=== PATIENT | female | born 1965 | race Caucasian/White ===

== ENCOUNTER 2022-11-08 11:18 | Emergency (ER) | payer OTHER ==
[~2022-11-08] VITALS: Ht 162.6 cm; Wt 58.2 kg
[2022-11-08 11:24] VITALS: BP 160/72
[2022-11-08] MEDS ORDERED: CIPR2.5D21 RIGHTEYE (11:28)
== END 2022-11-08 11:36 | disposition home or self-care (01) ==
LOC: ER 11:20
DX: H00.11 Chalazion right upper eyelid (principal)
CPT/HCPCS: 99283

== ENCOUNTER 2022-11-10 10:16 | Emergency (ER) | payer OTHER ==
[~2022-11-10] VITALS: Ht 162.6 cm; Wt 58.2 kg
[~2022-11-10 10:16] MED LIST: CIPR2.5D21 RIGHTEYE
[2022-11-10 10:18] VITALS: BP 155/64
--- NOTE | 2022-11-10 10:21 | NUR ---
PROVIDERS MADE AWARE OF PT IN [facility] ROOM
--- NOTE | 2022-11-10 10:27 | NUR ---
[facility]ARATH AT BEDSIDE
[2022-11-10] MEDS ORDERED: AMOX-117 PO (10:38)
[2022-11-10] MEDS ORDERED: amox tr/potassium clavulanate 875/125mg TAB PO ONE (10:40)
[2022-11-10] MEDS ORDERED: TETanus/Pertussis (Acell)/Diphther VAC/PF (Tdap-Adult) 0.5ml syringe IMVAC ONE (10:40)
== END 2022-11-10 11:54 | disposition home or self-care (01) ==
LOC: ER 10:17
DX: H00.11 Chalazion right upper eyelid (principal); Z79.899 Other long term (current) drug therapy
CPT/HCPCS: 90471; 90715; 99284

== ENCOUNTER 2023-09-06 09:14 | Inpatient (IN) | payer MEDICAID, OTHER ==
[~2023-09-06] VITALS: Ht 162.6 cm; Wt 61.2 kg
[2023-09-06 10:24] LABS: ALBUMIN 4.1 G/DL (3.4-5.0); ANION GAP 10 (8-16); BLOOD UREA NITROGEN 32 MG/DL (7-18); BUN/CREATININE RATIO 43.2 (10.0-20.0); CALCIUM 8.9 MG/DL (8.5-10.1); CHLORIDE 107 MMOL/L (99-107); CREATININE 0.74 MG/DL (0.40-0.90); ETHANOL < 10 MG/DL (<10); GLUCOSE 110 MG/DL (70-104); LIPASE 45 U/L (16-77); SODIUM 142 MMOL/L (135-145); TOTAL CARBON DIOXIDE 25.3 MMOL/L (24-32); eCRCL 71 ML/MIN; eGFR 80 ML/MIN
[2023-09-06 10:24] LABS: BILIRUBIN,URINE NEGATIVE (Neg); CLARITY,URINE CLEAR (Clear); COLOR,URINE YELLOW (Yellow); GLUCOSE, URINE NEGATIVE (Neg); KETONES,URINE NEGATIVE (Neg); LEUKOCYTE ESTERASE ,URINE NEGATIVE (Neg); NITRITES, URINE NEGATIVE (Neg); OCCULT BLOOD,URINE NEGATIVE (Neg); PROTEIN,URINE NEGATIVE (Neg); UROBILINOGEN,URINE 0.2 E.U/dL (0.2-1.0)
[2023-09-06 10:25] LABS: OCCULT BLOOD STOOL POSITIVE (Neg)
[2023-09-06] MEDS: pantoprazole 40 MG vial IV ONE ×2 (10:29→10:49)
[2023-09-06 10:30] LABS: BASOPHILS # (AUTO) 0.1 X10'3 (0-0.2); BASOPHILS % (AUTO) 1.1 % (0-1); EOSINOPHILS # (AUTO) 0.3 X10'3 (0-0.9); EOSINOPHILS % (AUTO) 4.7 % (0-6); HEMATOCRIT 32.7 % (35.0-45.0); LYMPHOCYTES # (AUTO) 1.7 X10'3 (1.1-4.8); LYMPHOCYTES % (AUTO) 24.8 % (21-51); MEAN CORPUSCULAR HEMOGLOBIN 30.5 PG (27.0-31.0); MEAN CORPUSCULAR HGB CONC 33.5 g/dL (33.0-36.5); MEAN CORPUSCULAR VOLUME 90.9 FL (78-98); MEAN PLATELET VOLUME 8.8 FL (7.4-10.4); MONOCYTES # (AUTO) 0.4 X10'3 (0-0.9); MONOCYTES % (AUTO) 5.6 % (2-12); NEUTROPHILS # (AUTO) 4.3 X10'3 (1.8-7.7); NEUTROPHILS % (AUTO) 63.8 % (42-75); PLATELET COUNT 334 X10'3 (140-440); RED CELL DISTRIBUTION WIDTH 12.9 % (11.5-14.5); WHITE BLOOD COUNT 6.8 X10'3 (4.5-11.0)
[2023-09-06 10:48] LABS: UA COLLECTION TYPE CLN CATCH MIDSTREAM
[2023-09-06 10:51] LABS: APTT 28 SECONDS (22-32); PROTHROMBIN TIME 10.4 SECONDS (9.0-12.0)
[2023-09-06] MEDS ORDERED: potassium Cl 20 mEq SR tablet PO PRN ×2 (11:10)
[2023-09-06] MEDS ORDERED: ondansetron/PF 4mg/2ml inj IV PRN (11:10)
[2023-09-06] MEDS ORDERED: mag hydrox/Alum hydrox/simeth 30ml oral suspension PO PRN (11:10)
[2023-09-06] MEDS ORDERED: magnesium hydroxide 30ml (MOM) UD suspension PO PRN (11:10)
[2023-09-06] MEDS ORDERED: magnesium 4gm in 100ml NS 100 ML IV PRN (11:10)
[2023-09-06] MEDS ORDERED: magnesium 2GM in 50ml NS 50 ML IV PRN (11:10)
[2023-09-06] MEDS ORDERED: magnesium Cl slow-release 64mg tablet PO PRN (11:10)
[2023-09-06] MEDS ORDERED: ondansetron 4mg rapidly disintigrating tab PO PRN (11:10)
[2023-09-06] MEDS ORDERED: potassium Cl 40MEQ/1/2NS 520ml 520 ML IV PRN (11:10)
[2023-09-06] MEDS ORDERED: acetaminophen 325mg tablet PO PRN (11:10)
[2023-09-06] MEDS: normal saline 1000ml 1,000 ML IV SCH (11:24)
[2023-09-06 11:29] LABS: RED BLOOD COUNT 3.62 X10'6 (4.20-5.60); RETICULOCYTE % (AUTO) 1.9 % (0.5-1.5)
[2023-09-06] MEDS: morphine 2 MG/ML inj. syringe IV PRN ×2 (11:40→15:39)
[2023-09-06] MEDS ORDERED: hydrALAZINE 20mg/ml inj. IV PRN (12:45)
[2023-09-06] MEDS: pantoprazole 40MG/NS 100ML BAG 100 ML IV SCH (15:19)
[2023-09-06 18:00] VITALS: BP 122/51; PULSE 73; RESP 18; TEMP 98.5; O2SAT 97
[2023-09-06] MEDS ORDERED: LISI10TA27 PO (18:14)
[2023-09-06 20:00] VITALS: RESP 18; O2SAT 97
[2023-09-06] MEDS: K and/or MAG REPLACEMENT MC SCH (20:00)
[2023-09-06 22:00] VITALS: BP 124/57; PULSE 69; RESP 18; TEMP 98.2; O2SAT 98
[2023-09-06] MEDS: Melatonin 3mg tablet PO SCH (23:03)
[2023-09-06] MEDS ORDERED: PANT20TA18 PO (23:41)
[2023-09-07] VITALS (11 sets, daily range): BP systolic 132–148; BP diastolic 60–79; PULSE 64–71; RESP 13–19; TEMP 97.3–98.2; O2SAT 97–100
[2023-09-07 07:10] LABS: BASOPHILS # (AUTO) 0.1 X10'3 (0-0.2); BASOPHILS % (AUTO) 1.4 % (0-1); EOSINOPHILS # (AUTO) 0.3 X10'3 (0-0.9); EOSINOPHILS % (AUTO) 6.6 % (0-6); HEMATOCRIT 29.4 % (35.0-45.0); HEMOGLOBIN 9.7 g/dl (12.0-16.0); LYMPHOCYTES # (AUTO) 1.9 X10'3 (1.1-4.8); LYMPHOCYTES % (AUTO) 35.7 % (21-51); MEAN CORPUSCULAR HEMOGLOBIN 29.9 PG (27.0-31.0); MEAN CORPUSCULAR HGB CONC 32.9 g/dL (33.0-36.5); MEAN CORPUSCULAR VOLUME 90.8 FL (78-98); MEAN PLATELET VOLUME 8.7 FL (7.4-10.4); MONOCYTES # (AUTO) 0.4 X10'3 (0-0.9); MONOCYTES % (AUTO) 8.2 % (2-12); NEUTROPHILS # (AUTO) 2.5 X10'3 (1.8-7.7); NEUTROPHILS % (AUTO) 48.1 % (42-75); PLATELET COUNT 262 X10'3 (140-440); RED BLOOD COUNT 3.24 X10'6 (4.20-5.60); RED CELL DISTRIBUTION WIDTH 13.1 % (11.5-14.5); WHITE BLOOD COUNT 5.3 X10'3 (4.5-11.0)
[2023-09-07 07:20] LABS: ALANINE AMINOTRANSFERASE 20 U/L (12-78); ALBUMIN 3.2 G/DL (3.4-5.0); ALBUMIN/GLOBULIN RATIO 1.1 (1.1-1.5); ALKALINE PHOSPHATASE 52 IU/L (46-116); ANION GAP 9 (8-16); ASPARTATE AMINO TRANSFERASE 21 U/L (10-37); BILIRUBIN,TOTAL 0.4 MG/DL (0.1-1.0); BLOOD UREA NITROGEN 17 MG/DL (7-18); BUN/CREATININE RATIO 23.9 (10.0-20.0); CHLORIDE 112 MMOL/L (99-107); CREATININE 0.71 MG/DL (0.40-0.90); GLUCOSE 87 MG/DL (70-104); MAGNESIUM 2.1 MG/DL (1.5-2.4); POTASSIUM 3.9 MMOL/L (3.5-5.1); SODIUM 146 MMOL/L (135-145); TOTAL CARBON DIOXIDE 24.8 MMOL/L (24-32); eCRCL 74 ML/MIN; eGFR 84 ML/MIN
[2023-09-07] MEDS ORDERED: LIDOcaine Viscous 15ml cup ONE (12:47)
[2023-09-07] MEDS ORDERED: fentaNYL/PF 50MCG/1 ML 2ML syringe ONE (13:29)
[2023-09-07] MEDS ORDERED: MIDAZolam 1 MG/ML 5ML VIAL ONE (13:29)
[2023-09-07] MEDS: pantoprazole 40mg Tablet.DR PO SCH (16:30)
[2023-09-08 06:00] VITALS: BP 134/56; PULSE 65; RESP 16; TEMP 98.2; O2SAT 98
[2023-09-08] MEDS: lisinopril 20mg tablet PO SCH (07:51)
[2023-09-08 08:02] LABS: BASOPHILS # (AUTO) 0.1 X10'3 (0-0.2); BASOPHILS % (AUTO) 1.1 % (0-1); EOSINOPHILS # (AUTO) 0.3 X10'3 (0-0.9); EOSINOPHILS % (AUTO) 5.2 % (0-6); HEMATOCRIT 29.9 % (35.0-45.0); HEMOGLOBIN 10.1 g/dl (12.0-16.0); LYMPHOCYTES # (AUTO) 1.4 X10'3 (1.1-4.8); LYMPHOCYTES % (AUTO) 23.7 % (21-51); MEAN CORPUSCULAR HEMOGLOBIN 30.4 PG (27.0-31.0); MEAN CORPUSCULAR HGB CONC 33.7 g/dL (33.0-36.5); MEAN CORPUSCULAR VOLUME 90.1 FL (78-98); MEAN PLATELET VOLUME 8.9 FL (7.4-10.4); MONOCYTES # (AUTO) 0.6 X10'3 (0-0.9); MONOCYTES % (AUTO) 9.1 % (2-12); NEUTROPHILS # (AUTO) 3.7 X10'3 (1.8-7.7); NEUTROPHILS % (AUTO) 60.9 % (42-75); PLATELET COUNT 290 X10'3 (140-440); RED BLOOD COUNT 3.32 X10'6 (4.20-5.60); WHITE BLOOD COUNT 6.1 X10'3 (4.5-11.0)
[2023-09-08 08:22] VITALS: RESP 16; O2SAT 98
[2023-09-08 08:32] LABS: ALANINE AMINOTRANSFERASE 20 U/L (12-78); ALBUMIN 3.4 G/DL (3.4-5.0); ALBUMIN/GLOBULIN RATIO 1.1 (1.1-1.5); ALKALINE PHOSPHATASE 65 IU/L (46-116); ANION GAP 9 (8-16); ASPARTATE AMINO TRANSFERASE 21 U/L (10-37); BILIRUBIN,TOTAL 0.3 MG/DL (0.1-1.0); BLOOD UREA NITROGEN 21 MG/DL (7-18); BUN/CREATININE RATIO 23.9 (10.0-20.0); CALCIUM 8.5 MG/DL (8.5-10.1); CHLORIDE 110 MMOL/L (99-107); CREATININE 0.88 MG/DL (0.40-0.90); GLUCOSE 104 MG/DL (70-104); MAGNESIUM 2.1 MG/DL (1.5-2.4); POTASSIUM 3.9 MMOL/L (3.5-5.1); SODIUM 144 MMOL/L (135-145); TOTAL CARBON DIOXIDE 25.4 MMOL/L (24-32); TOTAL PROTEIN 6.5 G/DL (6.4-8.2); eCRCL 59 ML/MIN; eGFR 66 ML/MIN
[2023-09-08] MEDS ORDERED: sucralfate 1 gm tablet PO SCH (08:50)
[2023-09-08] MEDS: sucralfate 1 gm tablet PO SCH (09:41)
[2023-09-08] MEDS ORDERED: PANT-47 PO (10:55)
[2023-09-08 11:00] VITALS: BP 113/40; PULSE 76; RESP 16; TEMP 98.2; O2SAT 93
[2023-09-08] MEDS ORDERED: TRAM50TA2 PO (11:16)
== END 2023-09-08 11:40 | disposition home or self-care (01) | DRG 241 ==
LOC: ER 09:14 → ED HOLD 12:40 → PCU 3S 13:00
PROVIDERS: ADMIT Internal Medicine; ATTEND Internal Medicine
PROC: 0DB78ZX Excision of Stomach, Pylorus, Via Natural or Artificial Opening Endoscopic, Diagnostic (ICD-10-PCS; principal; 2023-09-07)
DX: K29.71 Gastritis, unspecified, with bleeding (principal); D62 Acute posthemorrhagic anemia; K25.4 Chronic or unspecified gastric ulcer with hemorrhage; I10 Essential (primary) hypertension; K31.89 Other diseases of stomach and duodenum; T39.395A Adverse effect of other nonsteroidal anti-inflammatory drugs [NSAID], initial encounter; Y92.89 Other specified places as the place of occurrence of the external cause; Z87.11 Personal history of peptic ulcer disease; Z82.5 Family history of asthma and other chronic lower respiratory diseases; Z82.49 Family history of ischemic heart disease and other diseases of the circulatory system
CPT/HCPCS: 36415; 43239; 80048; 80053; 80320; 81003; 82272; 83605; 83690; 83735; 84100; 84484; 85025; 85045; 85610; 85730; 86885; 86900; 86901; 87040; 87081; 93005; 99152; 99285; A4620; C9113; G0378; J2250; J2270; J3010; J7030

== ENCOUNTER 2023-12-28 16:33 | Outpatient (CLI) | payer MEDICAID ==
[~2023-12-28 16:33] MED LIST changes: -CIPR2.5D21 RIGHTEYE; +LISI10TA27 PO; +PANT-47 PO
== END 2023-12-28 23:59 | disposition home or self-care (01) ==
LOC: RAD 16:33
PROVIDERS: ATTEND Nurse Practitioner Family
DX: D69.2 Other nonthrombocytopenic purpura (principal)
CPT/HCPCS: 36415; 85651; 86140; 86256

== ENCOUNTER 2024-05-15 12:58 | Emergency (ER) | payer MEDICAID ==
[~2024-05-15] VITALS: Ht 162.6 cm; Wt 62.6 kg
[2024-05-15 13:50] LABS: BASOPHILS # (AUTO) 0.1 X10'3 (0-0.2); BASOPHILS % (AUTO) 1.1 % (0-1); EOSINOPHILS # (AUTO) 0.1 X10'3 (0-0.9); EOSINOPHILS % (AUTO) 1.8 % (0-6); HEMATOCRIT 42.6 % (35.0-45.0); HEMOGLOBIN 13.9 g/dl (12.0-16.0); LYMPHOCYTES # (AUTO) 1.5 X10'3 (1.1-4.8); LYMPHOCYTES % (AUTO) 24.1 % (21-51); MEAN CORPUSCULAR HEMOGLOBIN 29.7 PG (27.0-31.0); MEAN CORPUSCULAR HGB CONC 32.7 g/dL (33.0-36.5); MEAN PLATELET VOLUME 8.2 FL (7.4-10.4); MONOCYTES # (AUTO) 0.5 X10'3 (0-0.9); MONOCYTES % (AUTO) 8.5 % (2-12); NEUTROPHILS # (AUTO) 4.1 X10'3 (1.8-7.7); NEUTROPHILS % (AUTO) 64.5 % (42-75); PLATELET COUNT 247 X10'3 (140-440); RED BLOOD COUNT 4.68 X10'6 (4.20-5.60); RED CELL DISTRIBUTION WIDTH 13.3 % (11.5-14.5); WHITE BLOOD COUNT 6.3 X10'3 (4.5-11.0)
[2024-05-15 14:01] LABS: APTT 29 SECONDS (22-32); PROTHROMBIN TIME 10.7 SECONDS (9.0-12.0)
[2024-05-15 14:04] LABS: ALANINE AMINOTRANSFERASE 22 U/L (12-78); ALBUMIN 4.1 G/DL (3.4-5.0); ALBUMIN/GLOBULIN RATIO 1.1 (1.1-1.5); ALKALINE PHOSPHATASE 94 IU/L (46-116); AMYLASE 89 U/L (25-115); ANION GAP 7 (8-16); ASPARTATE AMINO TRANSFERASE 32 U/L (10-37); BILIRUBIN,TOTAL 0.3 MG/DL (0.1-1.0); BLOOD UREA NITROGEN 26 MG/DL (7-18); BUN/CREATININE RATIO 29.5 (10.0-20.0); CALCIUM 9.1 MG/DL (8.5-10.1); CHLORIDE 103 MMOL/L (99-107); CREATININE 0.88 MG/DL (0.40-0.90); GLUCOSE 93 MG/DL (70-104); LIPASE 61 U/L (16-77); POTASSIUM 3.7 MMOL/L (3.5-5.1); SODIUM 139 MMOL/L (135-145); TOTAL CARBON DIOXIDE 28.6 MMOL/L (24-32); TOTAL PROTEIN 7.9 G/DL (6.4-8.2); eCRCL 59 ML/MIN; eGFR 66 ML/MIN
[2024-05-15 17:31] LABS: BILIRUBIN,URINE NEGATIVE (Neg); CLARITY,URINE SLIGHTLY CLOUDY (Clear); COLOR,URINE YELLOW (Yellow); GLUCOSE, URINE NEGATIVE (Neg); KETONES,URINE NEGATIVE (Neg); LEUKOCYTE ESTERASE ,URINE NEGATIVE (Neg); NITRITES, URINE NEGATIVE (Neg); OCCULT BLOOD,URINE NEGATIVE (Neg); PH,URINE 5.5 (4.8-8.0); PROTEIN,URINE NEGATIVE (Neg); UROBILINOGEN,URINE 0.2 E.U/dL (0.2-1.0)
[2024-05-15 17:35] LABS: UA COLLECTION TYPE CLN CATCH MIDSTREAM
[2024-05-15 17:36] LABS: BACTERIA,URINE FEW /HPF (Neg); RBC,URINE 0-2 /HPF (0-2); SQUAMOUS EPITHELIAL CELL,UR MODERATE /LPF (FEW); WBC,URINE 0-4 /HPF (0-4)
[2024-05-15 18:53] VITALS: BP 134/69; PULSE 98; RESP 16; O2SAT 98
== END 2024-05-15 19:07 | disposition home or self-care (01) ==
LOC: EEVIPCON 12:59 → ER 12:59
DX: K92.1 Melena (principal); D64.9 Anemia, unspecified; Z98.890 Other specified postprocedural states; Z79.899 Other long term (current) drug therapy
CPT/HCPCS: 36415; 80053; 81001; 82150; 83690; 85025; 85610; 85730; 86885; 86900; 86901; 99284

== ENCOUNTER 2025-01-01 08:13 | Outpatient (CLI) | payer OTHER ==
--- NOTE | 2025-01-01 11:46 | RADIOLOGY REPORT ---
CLINICAL INFORMATION: Shoulder injury. 2 prior surgeries. TECHNIQUE: Multisequence multiplanar MRI images of the bright shoulder were obtained without contrast . COMPARISON: None FINDINGS: Acromioclavicular joint: There is mild acromioclavicular hypertrophy and mild edema. There is Type 2 acromion. Moderate fluid in the subacromial / subdeltoid bursa. Rotator cuff tendons: Postsurgical changes of prior rotator cuff repair with full-thickness complete tears of the supraspinatus and infraspinatus tendons, with retraction of torn tendon fibers proximal to the level of the glenohumeral joint. There is a T1 and T2 hypointense structure adjacent to the re tracted rotator cuff tendons measuring up to 2.7 x 1.4 x 1.4 cm, likely surgical material from the pr ior rotator cuff surgery. Articular surface fraying possible small partial-thickness articular-surfac e tear involving the distal subscapularis tendon. Teres minor tendon is intact. Biceps tendon: Proximal long head biceps tendon is not visualized, likely due to prior tenodesis. Ten odesis site is poorly visualized, possibly seen at the distal aspect of the bicipital groove, althoug h there is an adjacent anchor which appears at least partially dislodged (series 5, image 13 correlat ing with series 8 image 10). Labrum: Postsurgical changes of the superior posterior labrum. Superior labrum is partially obscured by adjacent postsurgical changes. No definite labral tear identified given the limitations of the exa m. Bones: No fracture or focal marrow contusion. There is loss of the acromial humeral interval, with de paz perior subluxation of the humeral head relative to the glenoid, and abutment of the acromion by the h umeral head due to the rotator cuff tear. Muscles: There appears to be at least moderate fatty atrophy involving the supraspinatus, infraspinat us, and subscapularis muscles. Other: Motion artifact limits evaluation. IMPRESSION: 1. Postsurgical changes of prior rotator cuff repair with full-thickness complete tears of the supras pinatus and infraspinatus tendons from their insertions. 2. Postsurgical changes of prior tenodesis. There is a dislodged suture anchor near the level of the suspected tenodesis site. 3. Postsurgical changes of the superior and posterior labrum. No definite labral tear visualized give n the limitations of the exam. 4. Articular surface fraying and possible partial-thickness articular-surface tear of the distal subs capularis tendon. 5. Mild acromioclavicular hypertrophy. 6. Additional findings as detailed above.
== END 2025-01-01 23:59 | disposition home or self-care (01) ==
LOC: MRI02 08:13
PROVIDERS: ATTEND Orthopaedic Surgery
DX: S46.011A Strain of muscle(s) and tendon(s) of the rotator cuff of right shoulder, initial encounter (principal); M10.1 Lead-induced gout; M89.311 Hypertrophy of bone, right shoulder; X58.XXXA Exposure to other specified factors, initial encounter; Y93.89 Activity, other specified; Y92.89 Other specified places as the place of occurrence of the external cause; Y99.8 Other external cause status
CPT/HCPCS: 73221

== ENCOUNTER 2025-01-20 13:11 | Emergency (ER) | payer MEDICAID, OTHER ==
[~2025-01-20] VITALS: Ht 162.6 cm; Wt 65.9 kg
[2025-01-20 13:16] VITALS: TEMP 98.5
[2025-01-20 14:04] LABS: BASOPHILS # (AUTO) 0.1 X10'3 (0-0.2); BASOPHILS % (AUTO) 0.7 % (0-1); EOSINOPHILS # (AUTO) 0.2 X10'3 (0-0.9); EOSINOPHILS % (AUTO) 2.6 % (0-6); HEMATOCRIT 43.8 % (35.0-45.0); HEMOGLOBIN 14.7 g/dl (12.0-16.0); LYMPHOCYTES # (AUTO) 1.5 X10'3 (1.1-4.8); MEAN CORPUSCULAR HEMOGLOBIN 31.3 PG (27.0-31.0); MEAN CORPUSCULAR HGB CONC 33.6 g/dL (33.0-36.5); MEAN CORPUSCULAR VOLUME 93.2 FL (78-98); MEAN PLATELET VOLUME 8.6 FL (7.4-10.4); MONOCYTES # (AUTO) 0.4 X10'3 (0-0.9); MONOCYTES % (AUTO) 5.3 % (2-12); NEUTROPHILS # (AUTO) 6.1 X10'3 (1.8-7.7); NEUTROPHILS % (AUTO) 73.4 % (42-75); PLATELET COUNT 241 X10'3 (140-440); RED CELL DISTRIBUTION WIDTH 12.3 % (11.5-14.5); WHITE BLOOD COUNT 8.3 X10'3 (4.5-11.0)
--- NOTE | 2025-01-20 14:09 | Physician Documentation ---
History of Present Illness ~ Chief Complaint: Diarrhea Stated Complaint: POSS CDIFF Time Seen by MD: 14:04 Primary Medical Doctor: none HPI This 59-year-old female presents to the emergency department due to concerns for diarrhea around 10 times per day. Symptoms began on the 04 of January. This was after she completed a course of 7 days of metronidazole for BV. Evidently megha rtly after she completed this course, her BV symptoms returned and she was prescribed a second course of metronidazole but chose not to take it. This past Tuesday, her diarrhea was more frequent and largely consisted of mucus. She then presented to a local urgent care and was given azithromycin. She started this and feels that her symptoms are now worse and include anorexia, lower abd pain with cramping, and headache. Medication Reconciliation Allergies: Coded Allergies: No Known Allergies (Unverified , 01/20/25) Scheduled Lisinopril (Lisinopril), 2 TAB PO DAILY, (Reported) Pantoprazole Sodium (PROTONIX tablet), 40 MG PO BID Vancomycin Hcl (Vancomycin Hcl), 1 CAP PO Q6H Past Medical History Past Medical History: No Pertinent History, Anemia Past Surgical History: orthopedic surgeries, tonsillectomy Patient History: FH: hypertension FAMILY/OTHER MOTHER FHx: asthma FAMILY/OTHER FAMILY/OTHER CHILD CHILD CHILD Alcohol Use: None Drug Use: none Lives with: Family Lives In: Home Occupation: employed Review of Systems ROS As stated above in the HPI, otherwise all systems are reviewed and negative. Physical Exam Vital Signs: Temperature: 98.5, Source: Temporal, Heart Rate: 78, Respiratory Rate: 18, BP: 180/96, Pulse Oximetry: 98, Weight: 65.910 Oxygen Flow Rate: 0 Physical Exam General: Alert, no apparent distress. HEENT: PERRL, EOMI, no injection, somewhat dry mucous membranes. Neck: Full range of motion. Respiratory: Lungs clear, no respiratory distress. Chest: No accessory muscle use. Cardiovascular: Regular rate and rhythm, no murmurs. Gastrointestinal: Soft, nontender, nondistended. Bowels sounds hyperactive. Extremities: Normal range of motion, no deformity. Neurologic: Oriented x4. Psychiatric: Normal mood and affect. Skin: Normal color, warm and dry. No edema, no ecchymosis. Progress Results/Orders Results/Orders Orders - MOJGAN GELLER NP Cult Stool (Enteric Pathogens) (01/20/25 13:27) * Iv Access / Saline Lock * (01/20/25 16:04) Acetaminophen 1,000mg/100ml Iv (Ofirmev (01/20/25 20:00) Completed Orders - MOJGAN GELLER ASSISTANT [employer] MANAGER Normal Saline 1000ml (Sodium Chloride 10 (01/20/25 16:05) Ondansetron Inj. (Zofran 4mg/2ml Vial) (01/20/25 16:05) Medications Received in ER Medications (Trade) Dose Ordered Sig/Byron Route PRN Reason Start Time Stop Time Status Last Admin Dose Admin Sodium Chloride 1,000 ml @ 1,000 mls/hr ONCE ONCE IV 01/20/25 16:05 01/20/25 17:04 DC 01/20/25 16:29 1,000 MLS/HR Acetaminophen 100 ml @ 400 mls/hr ONCE ONCE IV 01/20/25 20:00 01/20/25 20:14 01/20/25 16:45 400 MLS/HR (Zofran 4mg/2ml vial) 4 mg ONCE ONCE IV 01/20/25 16:05 01/20/25 16:06 DC 01/20/25 16:43 4 MG Vital Signs 01/20/25 01/20/25 01/20/25 01/20/25 13:16 14:49 15:20 18:35 Temp 98.5 Pulse 78 69 62 Resp 18 18 18 B/P (MAP) 180/96 154/86 (108) 151/81 (104) Pulse Ox 98 98 98 O2 Flow Rate 0 0 Laboratory Tests Test 01/20/25 13:38 01/20/25 16:04 White Blood Count 8.3 Red Blood Count 4.70 Hemoglobin 14.7 Hematocrit 43.8 Mean Corpuscular Volume 93.2 Mean Corpuscular Hemoglobin 31.3 H Mean Corpuscular Hemoglobin Concent 33.6 Red Cell Distribution Width 12.3 Platelet Count 241 Mean Platelet Volume 8.6 Neutrophils (%) (Auto) 73.4 Lymphocytes (%) (Auto) 18.0 L Monocytes (%) (Auto) 5.3 Eosinophils (%) (Auto) 2.6 Basophils (%) (Auto) 0.7 Neutrophils # (Auto) 6.1 Lymphocytes # (Auto) 1.5 Monocytes # (Auto) 0.4 Eosinophils # (Auto) 0.2 Basophils # (Auto) 0.1 CBC Comment Sodium Level 140 Potassium Level 4.3 Chloride Level 105 Carbon Dioxide Level 29.7 Anion Gap 5 L Blood Urea Nitrogen 25 H Creatinine 0.76 Estimated GFR/1.73 m2 77 BUN/Creatinine Ratio 32.9 H Glucose Level 108 H Calcium Level 9.4 Total Bilirubin 0.6 Aspartate Amino Transf (AST/SGOT) 36 Alanine Aminotransferase (ALT/SGPT) 47 Alkaline Phosphatase 90 Total Protein 8.0 Albumin 4.3 Globulin 3.7 Albumin/Globulin Ratio 1.2 Lipase 34 Chemistry Comments Urine Specimen Description Cln catch midstream Urine Color Yellow Urine Clarity Clear Urine pH 6.5 Urine Specific Lowry 1.010 Urine Protein Negative Urine Glucose (UA) Negative Urine Ketones Negative Urine Occult Blood Negative Urine Nitrite Negative Urine Bilirubin Negative Urine Urobilinogen 0.2 Urine Leukocyte Esterase Negative Urine Culture Indicated Not ind Volume Urine Centrifuged 10 ml Urine Comment Medical Decision Making Additional Comments Pleasant 59-year-old female presented due to concerns for diarrhea since January 04. She was seen at urgent care and given a course of azithromycin for uncle ar reasons even though she had had no foreign travel or exposure to contaminated food or water. She does already have a stool sample pending through lab [facility], but it is the weekend and she is unable to obtain this result. She is very concerned that she has C diff due to the nature of her symptoms with recent Flagyl use. Labs were unremarkable. No leukocytosis. She does not appear septic. No imaging is warranted as she has no significant abdominal tenderness. She was allowed to weight in the ER for multiple hours, unable to produce a sample. Ultimately, she was instructed that she will need to wait for her sample from [facility]. If it is positive, she will have oral vanco to take. If it is not positive, she is not to poultry picker this prescription. Departure Time of Disposition: 18:38 Disposition: 01 HOME / SELF CARE / HOMELESS Impression: Primary Impression: Diarrhea Condition: Stable Discharge Instructions: Clostridioides Difficile Test, Diarrhea, Adult Additional Instructions: You were unable to produce a stool sample in the ER. You are being sent with the appropriate treatment for C diff if your test from [facility] returns positive. Please do not pick it up if your C Diff is negative. Take probiotics or eat plenty of yogurt/drink kombucha. Stay hydrated. Followup with primary care provider. Return if worse. Referrals: NO PRIMARY CARE PROVIDER (PCP) Prescriptions Ondansetron 8mg ODT (Ondansetron Odt) 8 Mg Tab.rapdis 1 TAB PO Q8H for nausea/vomiting for 2 Days, #6 TAB 0 Refills Prov: MOJGAN GELLER NP 01/20/25 Vancomycin Hcl (VANCOMYCIN HCL) 250 Mg Capsule 1 CAP PO Q6H for 10 Days, #40 CAP Prov: MOJGAN GELLER NP 01/20/25 Education Educated: Patient Educated regarding: diagnosis, treatment, prognosis, need for follow up Signature Scribe Signature: no scribe Attestation: The note accurately reflects work and decisions made by me.Mojgan Malin NP 01/20/25 14:08 MOJGAN GELLER NP Jan 20, 2025 14:09
[2025-01-20 14:13] LABS: ALANINE AMINOTRANSFERASE 47 U/L (12-78); ALBUMIN 4.3 G/DL (3.4-5.0); ALBUMIN/GLOBULIN RATIO 1.2 (1.1-1.5); ALKALINE PHOSPHATASE 90 IU/L (46-116); ANION GAP 5 (8-16); ASPARTATE AMINO TRANSFERASE 36 U/L (10-37); BILIRUBIN,TOTAL 0.6 MG/DL (0.1-1.0); BLOOD UREA NITROGEN 25 MG/DL (7-18); BUN/CREATININE RATIO 32.9 (10.0-20.0); CALCIUM 9.4 MG/DL (8.5-10.1); CHLORIDE 105 MMOL/L (99-107); CREATININE 0.76 MG/DL (0.40-0.90); GLUCOSE 108 MG/DL (70-104); LIPASE 34 U/L (16-77); POTASSIUM 4.3 MMOL/L (3.5-5.1); SODIUM 140 MMOL/L (135-145); TOTAL CARBON DIOXIDE 29.7 MMOL/L (24-32); eCRCL 67 ML/MIN; eGFR 77 ML/MIN
[2025-01-20 16:23] LABS: BILIRUBIN,URINE NEGATIVE (Neg); CLARITY,URINE CLEAR (Clear); COLOR,URINE YELLOW (Yellow); GLUCOSE, URINE NEGATIVE (Neg); KETONES,URINE NEGATIVE (Neg); LEUKOCYTE ESTERASE ,URINE NEGATIVE (Neg); NITRITES, URINE NEGATIVE (Neg); OCCULT BLOOD,URINE NEGATIVE (Neg); PH,URINE 6.5 (4.8-8.0); PROTEIN,URINE NEGATIVE (Neg); UROBILINOGEN,URINE 0.2 E.U/dL (0.2-1.0)
[2025-01-20 16:27] LABS: UA COLLECTION TYPE CLN CATCH MIDSTREAM
[2025-01-20] MEDS: normal saline 1000ml 1,000 ML IV ONE (16:29)
[2025-01-20] MEDS: ondansetron/PF 4mg/2ml inj IV ONE (16:43)
[2025-01-20] MEDS: acetaminophen 1,000mg/100ml IV 100 ML IV ONE (16:45)
[2025-01-20] MEDS ORDERED: VANC250C20 PO (18:41)
[2025-01-20] MEDS ORDERED: ONDA-245 PO (18:46)
[2025-01-20 18:51] VITALS: BP 151/81; PULSE 87; RESP 16; O2SAT 100
== END 2025-01-20 19:03 | disposition home or self-care (01) ==
LOC: ER 13:12
DX: R19.7 Diarrhea, unspecified (principal); R63.0 Anorexia; R10.30 Lower abdominal pain, unspecified; Z79.899 Other long term (current) drug therapy
CPT/HCPCS: 36415; 80053; 81003; 83690; 85025; 96365; 96366; 96375; 99284; J0131; J2405; J7030

== ENCOUNTER 2025-04-21 12:06 | Emergency (ER) | payer MEDICAID ==
[~2025-04-21] VITALS: Ht 162.6 cm; Wt 59.5 kg
[~2025-04-21 12:06] MED LIST changes: +ONDA-245 PO
[2025-04-21 12:30] VITALS: BP 131/74; PULSE 70; RESP 16; TEMP 98.2; O2SAT 98
--- NOTE | 2025-04-21 13:31 | Physician Documentation ---
History of Present Illness ~ Chief Complaint: Bite-insect Stated Complaint: BUG BITE Time Seen by MD: 13:30 Primary Medical Doctor: none HPI This is a 59-year-old female who presents reporting that she was bit by an unknown bug to the right forearm several days ago. Since that time, she has had intense itching and spreading redness around the bite. There was no pain or warmth to the area. She denies chills or fever. Tetanus within 5 years?: Yes Medication Reconciliation Allergies: Coded Allergies: No Known Allergies (Unverified , 01/20/25) Scheduled Lisinopril (Lisinopril), 2 TAB PO DAILY, (Reported) Ondansetron 8mg ODT (Ondansetron Odt), 1 TAB PO Q8H Pantoprazole Sodium (PROTONIX tablet), 40 MG PO BID Past Medical History Past Medical History: No Pertinent History, Anemia Past Surgical History: orthopedic surgeries, tonsillectomy Patient History: FH: hypertension FAMILY/OTHER MOTHER FHx: asthma FAMILY/OTHER FAMILY/OTHER CHILD CHILD CHILD Alcohol Use: None Drug Use: none Lives with: Family Lives In: Home Occupation: employed Review of Systems ROS As stated above in the HPI, otherwise all systems are reviewed and negative. Physical Exam Vital Signs: Temperature: 98.2, Source: Oral, Heart Rate: 70, Respiratory Rate: 16, BP: 131/74, Pulse Oximetry: 98, Weight: 59.500 Oxygen Flow Rate: 0 Physical Exam General: Alert, no apparent distress. Neck: Full range of motion. Respiratory: Lungs clear, no respiratory distress. Chest: No accessory muscle use. Cardiovascular: Regular rate and rhythm, no murmurs. Gastrointestinal: Soft, nontender, nondistended. Bowels sounds present. Extremities: Normal range of motion, no deformity. Neurologic: Oriented x4. Psychiatric: Normal mood and affect. Skin: Normal color, warm and dry. No edema, no ecchymosis. Non-blanching erythema to right forearm surrounding bite area. No heat to touch. No pain reported by patient when area is palpated. Progress Results/Orders Results/Orders Completed Orders - FERNANDO GELLER NP Triamcinolone Acet 40mg/Ml Inj (Kenalog- (04/21/25 13:50) Triamcinolone Acet 0.1% Cream (Kenalog (04/21/25 13:50) Triamcinolone Acet 0.1% Cream (Kenalog (04/21/25 13:50) Vital Signs 04/21/25 12:30 Temp 98.2 Pulse 70 Resp 16 B/P (MAP) 131/74 Pulse Ox 98 O2 Flow Rate 0 Medical Decision Making Differential Dx:Considerations: Include: Abrasion, Allergic reaction, Anaphylaxis, Cellulitis, Contusion, Fracture, Hematoma, Insect envenomation, Laceration, Neurovascular injury, Punture wound, Retained foreign body, Urticaria Additional Comment Does not appear cellulitic. No pain, no fevers. Is non-blanching, which is somewhat atypical for large local site reaction. However, no danger signs are present and patient will be treated with topical and IM steroids and instructed to do cool compresses. Discussed need to f/u with PCP, return if worse. Case and plan of care discussed with ALEXANDER Wahl. Departure Time of Disposition: 13:58 Disposition: 01 HOME / SELF CARE / HOMELESS Impression: Primary Impression: Insect bites Additional Impression: Allergic dermatitis Discharge Instructions: Insect Bite, Adult, [id number] Additional Instructions: You appear to have a large local site reaction after an insect bite to the right arm. It is being treated with intramuscular and topical steroids. Keep taking Claritin daily and use benadryl as needed at bedtime to help promote sleep/alleviate itching. Cold compresses to the right forearm 4x daily x 15 minutes or more. Followup with your PCP. Return if worse. Referrals: NO PRIMARY CARE PROVIDER (PCP) Education Educated: Patient Educated regarding: diagnosis, treatment, prognosis, need for follow up Signature Scribe Signature: x Attestation: The note accurately reflects work and decisions made by me.Fernando Malin NP 04/21/25 14:09 FERNANDO GELLER NP Apr 21, 2025 13:31
[2025-04-21] MEDS: triamcinolone acetonide 40mg/ml inj IM ONE (14:04)
== END 2025-04-21 14:23 | disposition home or self-care (01) ==
LOC: ER 12:06
DX: S50.862A Insect bite (nonvenomous) of left forearm, initial encounter (principal); L23.9 Allergic contact dermatitis, unspecified cause; Z90.89 Acquired absence of other organs; W57.XXXA Bitten or stung by nonvenomous insect and other nonvenomous arthropods, initial encounter; Y93.9 Activity, unspecified; Y92.89 Other specified places as the place of occurrence of the external cause; Y99.8 Other external cause status
CPT/HCPCS: 96372; 99283; J3301